=== PATIENT | male | born 1955 | race Caucasian/White ===

== ENCOUNTER 2023-01-15 08:55 | Observation (INO) | payer MEDICARE, SELFPAY ==
[2023-01-15] VITALS (11 sets, daily range): BP systolic 126–158; BP diastolic 47–74; PULSE 80–116; RESP 17–24; TEMP 35.8–36.9; O2SAT 96–100; BMI 33.0
--- NOTE | ~2023-01-15 | CT_ITS ---
CT of the Abdomen and Pelvis: Indication: Epigastric pain Technique: 2.5 mm axial scans were obtained through the abdomen and pelvis following intravenous adm inistration of 100 cc of Omnipaque 350. Dose reduction technique was used on this scan by utilizing a utomated exposure control and iterative reconstruction technique. The dose-length product (DLP) was 1 479.35 mGy-cm. Findings: Scans through the lung bases are unremarkable. The liver, spleen, pancreas, gallbladder, adrenals and kidneys are within normal limits. No evidence of aortic aneurysm. No lymphadenopathy. No bowel obstruction or bowel wall thickening. There is no evidence to suggest acute appendicitis. Th ere is a 7 mm enhancing nodular opacity in the posterior gastric fundal region (axial image 42, sagit josefina image 118), with density essentially equivalent to the aorta. Images through the pelvis were performed. Urinary bladder unremarkable. Prostate gland and seminal ve sicles are unremarkable. No ascites. Impression: 7 mm enhancing nodule in the posterior gastric fundal region, as above. This is nonspecific, but diag nostic insufficiency clinically vascular lesion (aneurysm or surrounding them), or other abnormal enh ancing small mass. This is of uncertain clinical significance. No evidence of other blood products wi thin the gastric lumen. Endoscopy could be considered as indicated. CT angiogram could also be consid ered for further imaging evaluation. No other significant findings. Reviewed, dictated and finalized at [facility]. Impression: 7 mm enhancing nodule in the posterior gastric fundal region, as above. This is nonspecific, but diagnostic insufficiency clinically vascular lesion (aneurysm or surrounding them), or other abnormal enhancing small mass. This is of uncer tain clinical significance. No evidence of other blood products within the rodney britt lumen. Endoscopy could be considered as indicated. CT angiogram could also be considered for further imaging evaluation. No other significant findings.
[2023-01-15 09:21] LABS: Basophils Absolute Auto 0.1 K/mm3 (0.0-0.1); Basophils Percent Auto 0.8 % (0.2-1.2); Eosinophils Absolute Auto 0.1 K/mm3 (0-0.3); Eosinophils Percent Auto 0.7 % (0-4.4); Hematocrit 43.3 % (42.0-52.0); Hemoglobin 14.2 g/dL (14.0-18.0); Immature Granulocyte Absolute 0.02 K/mm3 (0.00-0.031); Immature Granulocyte Percent A 0.2 % (0-0.5); Lymphocytes Absolute Auto 1.46 K/mm3 (0.9-3.2); Lymphocytes Percent Auto 17.5 % (18.3-44.2); Mean Corpuscular HGB Conc 32.8 g/dl (32-36); Mean Corpuscular Hemoglobin 31.1 pg (26-34); Mean Corpuscular Volume 94.7 fl (80-100); Mean Platelet Volume 9.9 fl (7.4-10.4); Monocytes Absolute Auto 0.5 K/mm3 (0.1-0.6); Monocytes Percent Auto 6.4 % (2.6-8.5); Neutrophils Absolute Auto 6.2 K/mm3 (1.3-6.7); Neutrophils Percent Auto 74.4 % (45.5-73.1); Platelet Count Result 193 k/mm3 (150-375); Red Blood Count 4.57 M/mm3 (4.6-6.20); Red Cell Distribution Width 12.3 % (11.5-14.5); White Blood Count 8.3 K/mm3 (4.5-10.0)
[2023-01-15 09:36] LABS: Alanine Aminotransferase 31 U/L (6-50); Albumin Level 3.8 g/dL (3.5-5.1); Alkaline Phosphatase 128 U/L (38-126); Anion Gap 17 mmol/L (8-16); Aspartate Amino Transferase 36 U/L (17-59); Bilirubin,Total 1.8 mg/dL (0.2-1.3); Blood Urea Nitrogen 28 mg/dL (9-20); Calcium 8.4 mg/dL (8.4-10.2); Carbon Dioxide 12 mmol/L (22-30); Chloride 103 mmol/L (98-107); Estimated CRCL calculation 74 ml/min; Estimated Glomerular Filt Rate 60; Glucose 454 mg/dL (65-110); Lipase 122 U/L (23-300); Potassium 4.8 mmol/L (3.4-5.0); Sodium 132 mmol/L (137-145)
[2023-01-15] MEDS: SODIUM CHLORIDE 0.9% IV 1,000 ML 999 ML IV CONT ×3 (09:39→11:09)
--- NOTE | 2023-01-15 09:48 | ED.GENADULT ---
HPI - General Adult General Chief complaint: Abdominal Pain <Joel Cavanaugh PA-C - Last Filed: 01/15/23 17:40> Stated complaint: abd pain <Joel Cavanaugh PA-C - Last Filed: 01/15/23 17:40> Time Seen by Provider: 01/15/23 09:06 <Joel Cavanaugh PA-C - Last Filed: 01/15/23 17:40> Source: patient <KAYLEIGH Rene Last Filed: 01/15/23 17:40> Mode of arrival: ambulatory <KAYLEIGH Rene Last Filed: 01/15/23 17:40> Limitations: no limitations <Joel Cavanaugh PA-C - Last Filed: 01/15/23 17:40> History of Present Illness HPI narrative: This is a 67-year-old male with PMH of type 1 diabetes who presents to the ED with chief complaint of generalized abdominal pain for the past 2 days. Patient states that it came on suddenly but has been constant since onset. Reports that his sugars have been very high at home. He self boluses with carb counting. He states his machine has a scheduled long-acting insulin as well. Denies fevers, chills, nausea, vomiting, diarrhea, constipation, chest pain, shortness of breath. <Joel Cavanaugh PA-C - Last Filed: 01/15/23 17:40> Related Data Home medications: Home Medications Medication Instructions Recorded Confirmed aspirin 81 mg tablet,delayed 81 mg PO DAILY 10/23/20 01/15/23 release (Adult Aspirin Regimen) atorvastatin 40 mg tablet (Lipitor) 40 mg PO DAILY 10/23/20 01/15/23 ezetimibe 10 mg tablet 10 mg PO DAILY 10/23/20 01/15/23 lisinopril 20 mg tablet 20 mg PO DAILY 10/23/20 01/15/23 insulin lispro 100 unit/mL See Rx Instructions .Route .COMPLEX 01/15/23 01/15/23 subcutaneous solution <KAYLEIGH Rene Last Filed: 01/15/23 17:40> Allergies/adverse reactions: Allergies Allergy/AdvReac Type Severity Reaction Status Date / Time No Known Allergies Allergy Verified 02/20/22 08:23 <Joel Cavanaugh PA-C - Last Filed: 01/15/23 17:40> PMFSH Past Medical History Medical History: Medical History Essential (primary) hypertension Mixed hyperlipidemia Type 1 diabetes <Joel Cavanaugh PA-C - Last Filed: 01/15/23 17:40> Family History Family History: Family History Mother Cerebrovascular accident Acute myocardial infarction Sibling Family history of cardiovascular disease Diabetes mellitus Sibling Diabetes mellitus Son Diabetes mellitus Sibling Diabetes mellitus <Joel Cavanaugh PA-C - Last Filed: 01/15/23 17:40> Social History Social History: Social History Smoking status: Never smoker Second hand tobacco smoke exposure: No Alcohol intake: current Drinks per week: 24 Substance use: never Lack of Transportation: No Lack of Food: Never True Current Housing: I Have Housing Concerned About Future Housing: No Difficulty Paying Gas/Electric Bills: No Difficulty Paying for Meds: No Currently Unemployed: No Education: Associate Degree Difficulty w/ Childcare or Family Care: No Spiritual care concerns: No <Joel Cavanaugh PA-C - Last Filed: 01/15/23 17:40> Exam Narrative: GENERAL: Well-appearing, well-nourished, and in no acute distress. HEAD: Normocephalic, atraumatic. EYES: PERRLA and EOMI. ENT: Nares clear, no rhinorrhea or epistaxis. Mucous membranes moist. Oropharynx without tonsillar hypertrophy exudate or other lesions. NECK: Supple. No adenopathy or masses. CHEST: No respiratory distress. Clear to auscultation. No wheezes rales or rhonchi HEART: Regular rate and rhythm. No murmur heard. Normal peripheral pulses. ABDOMEN: Mild epigastric tenderness. Soft, otherwise nontender, nondistended, normal active bowel sounds. Negative Neal sign. Negative McBurney's point. MSK: Normal range of motion. No edema. SKIN: Warm, dry, no rash. NEURO: Alert and oriented x3. No focal deficits. PSYCH: Nor
[2023-01-15 10:23] LABS: Fractional Inspired Oxygen 21 %; HCO3 VBG 14.3 mEq/l (24.0-30.0); pH VBG 7.304 (7.300-7.400)
[2023-01-15 10:24] LABS: Device ROOM AIR; PCO2 VBG 29.4 mmHg (42.0-48.0)
[2023-01-15 10:53] LABS: Lactic Acid Reflex 3.1 mmol/L (0.7-2.0)
--- NOTE | 2023-01-15 11:08 | PC.NURSE ---
Per provider, insulin and kcl will wait to be given depending on patient's BMP results.
[2023-01-15 11:22] LABS: Appearance Urine Clear (Clear); Bilirubin Urine Negative (Negative); Blood Urine Negative (Negative); Color Urine Yellow (Yellow); Glucose Urine UA 3+ mg/dL (Negative); Ketones Urine 3+ mg/dL (Negative); Leukocyte Esterase Ur Negative LEU/UL (Negative); Nitrate Urine Negative (Negative); Protein Urine Negative (Negative); pH Urine 5.5 (5.0-9.0)
[2023-01-15 11:27] LABS: Specific Grav Ur 1.039 (1.001-1.035)
[2023-01-15 11:28] LABS: Add Urine Microscopic? NO; Anion Gap 17 mmol/L (8-16); Blood Urea Nitrogen 28 mg/dL (9-20); Calcium 8.1 mg/dL (8.4-10.2); Carbon Dioxide 14 mmol/L (22-30); Chloride 103 mmol/L (98-107); Estimated CRCL calculation 81 ml/min; Estimated Glomerular Filt Rate > 60; Glucose 367 mg/dL (65-110); Potassium 4.8 mmol/L (3.4-5.0); Sodium 134 mmol/L (137-145)
[2023-01-15 11:29] LABS: Hemoglobin A1C 8.6 % (<5.7)
[2023-01-15] MEDS: INSULIN HUMAN REGULAR (*BKC) 100 UNITS/ML 10 UNITS IV PUSH (11:49)
[2023-01-15 12:45] LABS: Glucose Point of Care 256 mg/dl (65-105)
[2023-01-15 13:13] LABS: Anion Gap 13 mmol/L (8-16); Blood Urea Nitrogen 26 mg/dL (9-20); Calcium 7.8 mg/dL (8.4-10.2); Carbon Dioxide 15 mmol/L (22-30); Chloride 108 mmol/L (98-107); Estimated CRCL calculation 88 ml/min; Estimated Glomerular Filt Rate > 60; Glucose 273 mg/dL (65-110); Potassium 4.5 mmol/L (3.4-5.0); Sodium 136 mmol/L (137-145)
[2023-01-15 13:38] LABS: Reflex Lactic Acid Yes or No Add Lactic
[2023-01-15 13:45] LABS: Glucose Point of Care 260 mg/dl (65-105)
--- NOTE | 2023-01-15 13:47 | PM.IMHP ---
H&P: HPI History of Present Illness Date/Time: 01/15/23 14:15 Chief Complaint: Abdominal pain and high blood sugar. Narrative: This is a very pleasant 67-year-old male with insulin-dependent diabetes, hypertension, and dyslipidemia who presented to the emergency department via private vehicle from home for evaluation of abdominal pain and high blood sugar. The patient provides the following history. The last several days he has developed an intermittent aching discomfort in the periumbilical region without radiation. It does not radiate and he sees no pattern as to when it occurs. Associated symptoms include nausea and dry heaves as well as poor appetite and decreased oral intake. He had 1 episode of diarrhea but that has since resolved. Additionally, his glucose has been running high, over 400 the last couple of days despite bolusing insulin. Insulin pump site is unremarkable and he did not see anything wrong with the placement. He denies fever, chills, sweats, cold and flu symptoms, chest pain, shortness a breath, vomiting, and dysuria. He also denies bloating, belching, GERD symptoms, and history of ulcers. Weight has remained stable. Preliminary workup in the ED is consistent with mild diabetic ketoacidosis with hyperglycemia, elevated beta hydroxybutyrate, ketonuria, and elevated anion gap. CT of the abdomen and pelvis showed a 7 mm enhancing nodule in the posterior gastric fundal region. He was given 3 L of normal saline with closure of anion gap and he has since been admitted to the IMU for further hydration. At the time my evaluation he is feeling better with the IV fluids and he has no current complaints. Review of Systems Review of Systems: Twelve systems were reviewed and are negative except for as per HPI. [facility] Past Medical History Medical History BMI 33.0-33.9,adult Essential (primary) hypertension Insulin dependent diabetes mellitus Mixed hyperlipidemia Type 1 diabetes Surgical History Surgical History (Updated 01/15/23 @ 21:24 by Evelyn Gardner PA-C) History of colonoscopy Family History Family History Mother Cerebrovascular accident Acute myocardial infarction Sibling Family history of cardiovascular disease Diabetes mellitus Sibling Diabetes mellitus Son Diabetes mellitus Sibling Diabetes mellitus Social History Social History (Updated 01/15/23 @ 21:25 by Evelyn Gardner PA-C) Social History: Surrogate medical decision maker: Deann Lundy, spouse. Code status: Full code. Smoking status: Never smoker Second hand tobacco smoke exposure: No Alcohol intake: current Drinks per week: 24 Alcohol use details: Six pack of beer 3 to 4 days a week. Substance use: never Lack of Transportation: No Lack of Food: Never True Current Housing: I Have Housing Concerned About Future Housing: No Difficulty Paying Gas/Electric Bills: No Difficulty Paying for Meds: No Currently Unemployed: No Education: Associate Degree Difficulty w/ Childcare or Family Care: No Additional living arrangements comments: Lives with spouse in [place]. 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 Spiritual care concerns: No Meds Home Medications and Allergies Home Medications Medication Instructions Recorded Confirmed Type aspirin 81 mg tablet,delayed 81 mg PO DAILY 10/23/20 01/16/23 History release (Adult Aspirin Regimen) atorvastatin 40 mg tablet (Lipitor) 40 mg PO DAILY 10/23/20 01/16/23 History ezetimibe 10 mg tablet 10 mg PO DAILY 10/23/20 01/16/23 History lisinopril 20 mg tablet 20 mg PO DAILY 10/23/20 01/16/23 History insulin lispro 100 unit/mL See Rx Instructions .Route .COMPLEX 01/15/23 01/16/23 History subcutaneous solution Allergies Allergy/AdvReac Type Severity Reaction Status Date / Time No K
[2023-01-15] MEDS: LACTATED RINGERS 1,000 ML 125 ML IV CONT ×2 (14:02→22:11)
[2023-01-15 14:57] LABS: Glucose Point of Care 313 mg/dl (65-105)
--- NOTE | 2023-01-15 15:16 | ADMGEN ---
This patient, Charlie Lundy, was admitted to IMU Room 210-01. Patient/family oriented to hospital policies and general routines including ID bracelet, bed and alarms, visiting hours, pain management, procedures, bathroom and other care routines, personal items, smoking policy, room service/diet, and visiting hours. Information on how to activate the Rapid Response Team has been discussed. Patient/Family are encouraged to report perceived risks to care and to ask questions if they do not understand what they are told or what they should do.
[2023-01-15] MEDS: INSULIN ASPART (*BKC) 100 UNITS/ML 8 UNITS SUB-Q (15:29)
[2023-01-15 15:32] LABS: Lactic Acid 1.5 mmol/L (0.7-2.0)
[2023-01-15] MEDS: PANTOPRAZOLE SODIUM IV 80 MG in SODIUM CHLORIDE 0.9% IV 500 ML 50 MG IV CONT (15:37)
[2023-01-15] MEDS: INSULIN ASPART (*BKC) 100 UNITS/ML SUB-Q (16:33)
[2023-01-15 16:42] LABS: Glucose Point of Care 359 mg/dl (65-105)
--- NOTE | 2023-01-15 17:28 | WPDGICN ---
Assessment and Plan Assessment and plan (1) Diabetic ketoacidosis: Code(s): E11.10 - Type 2 diabetes mellitus with ketoacidosis without coma Status: Acute Assessment and Plan: ALTHOUGH HE HAS AN INSULIN PUMP, HIS DIABETES APPARENTLY HAS BEEN POOR CONTROL LATELY. HE HAS BEEN LETTING IT RUN OVER 200 AND TODAY IT WENT UP TO 454. (2) Abdominal pain: Code(s): R10.9 - Unspecified abdominal pain Status: Acute Assessment and Plan: This pain has been present since Thursday it is deep and he is not tender on palpation. He had the same thing in November for several days. He should be to to his diabetes because on both occasions his blood sugars were quite high he has had no vomiting or nausea. His weight is stable. (3) Abnormal CT scan, gastrointestinal tract: Code(s): R93.3 - Abnormal findings on diagnostic imaging of other parts of digestive tract Status: Acute Assessment and Plan: 7 mm enhancing nodule in the posterior gastric fundal region, as above. This is nonspecific, but diagnostic insufficiency clinically vascular lesion (aneurysm or surrounding them), or other abnormal enhancing small mass. This is of uncertain clinical significance. No evidence of other blood products within the gastric lumen. Endoscopy could be considered as indicated. CT angiogram could also be considered for further imaging evaluation. I will schedule him for EGD to be done tomorrow morning to investigate this mass as well as the abdominal pain. GI Consult Note Consult date/time: 01/15/23 17:28 HPI: Charlie Lundy is a 67 year old male who presented to the emergency room today with diabetes out of control and abdominal pain. He states that Thursday he began having pain in the upper mid abdomen, a somewhat localized semi sharp pain that seemed Deep. It made his entire abdomen feel sore. He was able to eat and has had no vomiting. He also noted that his blood sugars were increasing. He came to emergency room today finally when his blood sugar was over 450. He states that his weight has been stable. He has not had a change in bowel habits. He has no chronic gastrointestinal problems. He has never had liver disease or pancreatiti s. He states that the same thing happened in November. At that time his blood sugar was elevated and he had abdominal pain which subsided after a few days on its own. he states that he has never been hospitalized in his adult life. He does have an insulin pump. He had a colonoscopy about 5 years ago with removal of a polyp. CT scan shows; 7 mm enhancing nodule in the posterior gastric fundal region, as above. This is nonspecific, but diagnostic insufficiency clinically vascular lesion (aneurysm or surrounding them), or other abnormal enhancing small mass. This is of uncertain clinical significance. No evidence of other blood products within the gastric lumen. Endoscopy could be considered as indicated. CT angiogram could also be considered for further imaging evaluation. Review of Systems Review of Systems: All systems reviewed & are unremarkable except as noted in HPI and below PMFSH Past Medical History Medical History Essential (primary) hypertension Mixed hyperlipidemia Type 1 diabetes Family History Family History Mother Cerebrovascular accident Acute myocardial infarction Sibling Family history of cardiovascular disease Diabetes mellitus Sibling Diabetes mellitus Son Diabetes mellitus Sibling Diabetes mellitus Social History Social History Smoking status: Never smoker Second hand tobacco smoke exposure: No Alcohol intake: current Drinks per week: 24 Substance use: never Lack of Transportation: No Lack of Food: Never True Current Housing: I Have Housing Concerned About Future Housing
[2023-01-15 18:04] LABS: Glucose Point of Care 322 mg/dl (65-105)
[2023-01-15] MEDS: INSULIN GLARGINE (*BKC) 100 UNITS/ML 30 UNITS SUB-Q (18:39)
[2023-01-15 20:14] LABS: Glucose Point of Care 251 mg/dl (65-105)
[2023-01-15 20:55] LABS: Anion Gap 9 mmol/L (8-16); Blood Urea Nitrogen 27 mg/dL (9-20); Calcium 7.8 mg/dL (8.4-10.2); Carbon Dioxide 18 mmol/L (22-30); Chloride 106 mmol/L (98-107); Estimated CRCL calculation 81 ml/min; Estimated Glomerular Filt Rate > 60; Glucose 251 mg/dL (65-110); Potassium 4.7 mmol/L (3.4-5.0); Sodium 133 mmol/L (137-145)
[2023-01-16] VITALS (10 sets, daily range): BP systolic 128–196; BP diastolic 66–78; PULSE 72–85; RESP 17–20; TEMP 35.8–36.8; O2SAT 97–100; BMI 33.0
--- NOTE | 2023-01-16 07:00 | PC.NURSE ---
Paper documentation exists on this patient due to [employer] downtime on 01/16/23 from to [0700] .
[2023-01-16 08:03] LABS: Glucose Point of Care 216 mg/dl (65-105)
[2023-01-16] MEDS: INSULIN ASPART (*BKC) 100 UNITS/ML SUB-Q ×2 (08:23→12:24)
[2023-01-16] MEDS: LACTATED RINGERS 1,000 ML 125 ML IV CONT ×2 (08:25→16:49)
--- NOTE | 2023-01-16 10:09 | WPDANESEPPF ---
Anes - Initial Pre Proc Eval Procedure: Operation Date: 01/16/23 14:15 Proposed Procedures p Esophagogastroduodenoscopy - Foreign Singh MD Date/Time: 01/16/23 10:09 Surgeon: Sofi Hernandez MD Pre Op Diagnosis: DKA/ Hyperglycemia Patient Data Age: 67 Gender: M Height: 1.91 m Weight: 120 kg Last Vital Signs Temp 35.8 C L 01/16/23 08:15 Pulse 85 01/16/23 08:15 Resp 20 01/16/23 08:15 BP 158/77 H 01/16/23 08:15 Pulse Ox 99 01/16/23 08:15 O2 Del Method Room Air 01/16/23 08:00 Allergies Allergy/AdvReac Type Severity Reaction Status Date / Time No Known Allergies Allergy Verified 02/20/22 08:23 Home Medications Medication Instructions Recorded Confirmed Type aspirin 81 mg tablet,delayed 81 mg PO DAILY 10/23/20 01/15/23 History release (Adult Aspirin Regimen) atorvastatin 40 mg tablet (Lipitor) 40 mg PO DAILY 10/23/20 01/15/23 History ezetimibe 10 mg tablet 10 mg PO DAILY 10/23/20 01/15/23 History lisinopril 20 mg tablet 20 mg PO DAILY 10/23/20 01/15/23 History insulin lispro 100 unit/mL See Rx Instructions .Route .COMPLEX 01/15/23 01/15/23 History subcutaneous solution Laboratory Tests 01/15/23 01/15/23 01/15/23 09:16 10:14 10:34 VBG pH 7.304 (7.300-7.400) VBG pCO2 29.4 L* mmHg (42.0-48.0) VBG pO2 44.0 mmHg (35.0-45.0) VBG HCO3 14.3 L mEq/l (24.0-30.0) O2 Delivery Device Room air O2 Liters/Min Not Reportable FiO2 21 % Sodium Potassium Chloride Carbon Dioxide Anion Gap BUN Creatinine Estim Creat Clear Calc Estimated GFR Glucose POC Capillary Glucose Hemoglobin A1c Lactic Acid 3.1 H mmol/L (0.7-2.0) Calcium Phosphorus Magnesium Beta-Hydroxybutyrate/Acetoacetate 3.80 H mmol/L (0.02-0.27) Urine Color Urine Appearance Urine pH Ur Specific Palmer Urine Protein Urine Glucose (UA) Urine Ketones Ur Blood (Man) Urine Nitrate Urine Bilirubin Urine Urobilinogen Leukocyte Esterase Rfl 01/15/23 01/15/23 01/15/23 11:11 12:42 12:55 VBG pH VBG pCO2 VBG pO2 VBG HCO3 O2 Delivery Device O2 Liters/Min FiO2 Sodium 134 L mmol/L 136 L mmol/L (137-145) (137-145) Potassium 4.8 mmol/L 4.5 mmol/L (3.4-5.0) (3.4-5.0) Chloride 103 mmol/L 108 H mmol/L (98-107) (98-107) Carbon Dioxide 14 L mmol/L 15 L mmol/L (22-30) (22-30) Anion Gap 17 H mmol/L 13 mmol/L (8-16) (8-16) BUN 28 H mg/dL 26 H mg/dL (9-20) (9-20) Creatinine 1.10 mg/dL 1.00 mg/dL (0.7-1.3) (0.7-1.3) Estim Creat Clear Calc 81 ml/min 88 ml/min Estimated GFR > 60 > 60 (59 - ) (59 - ) Glucose 367 H mg/dL 273 H mg/dL (65-110) (65-110) POC Capillary Glucose 256 H mg/dl (65-105) Hemoglobin A1c 8.6 H % (<5.7) Lactic Acid Calcium 8.1 L mg/dL 7.8 L mg/dL (8.4-10.2) (8.4-10.2) Phosphorus 3.0 mg/dL (2.5-4.5) Magnesium 2.0 mg/dL (1.6-2.3) Beta-Hydroxybutyrate/Acetoacetate Urine Color Yellow (Yellow) Urine Appearance Clear (Clear) Urine pH 5.5 (5.0-9.0) Ur Specific Palmer 1.039 H (1.001-1.035) Urine Protein Negative mg/dL (Negative) Urine Glucose (UA) 3+ H mg/dL (Negative) Urine Ketones 3+ H mg/dL (Negative) Ur Blood (Man) Negative (Negative) Urine Nitrate Negative (Negative) Urine Bilirubin Negative (Ne
[2023-01-16 11:30] LABS: Glucose Point of Care 249 mg/dl (65-105)
--- NOTE | 2023-01-16 11:49 | PCCCNOTE ---
On 01/16/23, the student, [Sally Erazo], provided care and completed [facility] documentation on this patient. I have reviewed the student's documentation and agree with the findings.
--- NOTE | 2023-01-16 13:09 | PM.IMPN ---
Progress Note: A&P Assessment and Plan (1) Diabetic ketoacidosis: Code(s): E11.10 - Type 2 diabetes mellitus with ketoacidosis without coma Status: Resolved Assessment and Plan: The patient presented to the emergency department for evaluation of periumbilical pain and hyperglycemia as per HPI. Preliminary workup in the emergency department was consistent with mild diabetic ketoacidosis with hyperglycemia, ketonuria, elevated beta hydroxybutyrate, and elevated anion gap. His numbers have improved significantly with IV fluids and he will continue to be hydrated overnight. Insulin pump was removed in the emergency department and he will be transition to long-acting insulin while hospitalized. It is unclear where his glucose is climbing, there is no evidence to suggest underlying infection and he reports that his insulin pump site was operating fine. Plan to restart insulin pump tomorrow after he has completed EGD. (2) Abdominal pain: Code(s): R10.9 - Unspecified abdominal pain Status: Acute Assessment and Plan: Regarding the abdominal discomfort, no acute findings were noted on CT however there was a 7 mm nodular area in the gastric fundus Dr. Singh has been consulted with plans for EGD 2 day at 4:15 p.m. Start on pantoprazole. (3) Insulin dependent diabetes mellitus: Status: Acute Assessment and Plan: Insulin Lispro sliding scale, Accu-checks qAc and HS and Hold oral hypoglycemics Initiate hypoglycemic precautions Obtain a HgbA1c Plan will continue home medications for hyperlipidemia and hypertension. Subjective Date/time seen: 01/16/23 13:09 Interval history: Patient continues to have epigastric pain that is worse with eating. He is scheduled had EGD at 4:15 a.m. this afternoon. He describes the pain as a dull aching pain. There is no radiation. No nausea associated with the pain and no fevers. Review of Systems Review of Systems: All systems reviewed & are unremarkable except as noted in HPI and below Exam Narrative: GENERAL: Comfortable, no acute distress HENMT: moist mucous membranes EYES: EOM intact b/l NECK: no lymphadenopathy RESPIRATORY: clear to auscultation CARDIO: RRR GI: soft, nontender, bowel sounds present SKIN: no rashes EXTREMITIES: no edema, redness or tenderness Objective Data Vital Signs Vital Signs: Vital Signs - 24 hr 01/15/23 14:13 01/15/23 14:56 01/15/23 16:25 Temperature 96.5 F L 96.8 F L Pulse Rate 105 H 116 H 106 H Respiratory Rate 20 24 H Blood Pressure 133/66 126/50 L 136/47 L Pulse Oximetry 98 100 100 Oxygen Delivery 01/15/23 16:00 01/15/23 18:00 01/15/23 20:00 Temperature Pulse Rate 106 H 102 H 100 Respiratory Rate Blood Pressure Pulse Oximetry Oxygen Delivery 01/15/23 20:00 01/15/23 20:00 01/15/23 21:25 Temperature 97.0 F L Pulse Rate 101 H 93 84 Respiratory Rate 24 H 18 Blood Pressure 153/67 H Pulse Oximetry 100 96 Oxygen Delivery Room Air 01/15/23 23:07 01/15/23 23:16 01/15/23 23:16 Temperature 97.5 F L Pulse Rate 83 80 80 Respiratory Rate 18 18 Blood Pressure 158/64 H Pulse Oximetry 100 100 Oxygen Delivery Room Air 01/16/23 04:00 01/16/23 08:15 01/16/23 08:00 Temperature 97.6 F 96.4 F L Pulse Rate 78 85 85 Respiratory Rate 18 20 20 Blood Pressure 165/71 H 158/77 H Pulse Oximetry 100 99 99 Oxygen Delivery Room Air 01/16/23 08:00 01/16/23 11:31 Temperature 98.3 F Pulse Rate 85 79 Respiratory Rate 20 Blood Pressure 162/74 H Pulse Oximetry 99 Oxygen Delivery Intake/Output Intake/Output: Intake & Output 01/13/23 01/14/23 01/15/23 01/16/23 23:59 23:59 23:59 23:59 Intake Total 4660 1480 Output Total 1000 Balance 4660 480 Meds/Results Medications: Active Medications Generic Name Dose Route Start Last Admin Trade Name Freq PRN Reason Stop Dose Admin Dextrose 12.5 gm 01/15/23 21:32
--- NOTE | 2023-01-16 13:11 | PC.NURSE ---
Patient left floor with hospital staff to GI lab for egd. Patient oriented x4, no complaints stated.
[2023-01-16] MEDS: LACTATED RINGERS 1,000 ML 150 ML IV CONT (13:16)
[2023-01-16 13:20] LABS: Glucose Point of Care 207 mg/dl (65-105)
[2023-01-16] MEDS: SIMETHICONE ORAL SUSPENSION 20 MG/0.3 ML 30 ML BOTTLE PO (14:41)
[2023-01-16 15:07] LABS: Glucose Point of Care 169 mg/dl (65-105)
[2023-01-16] MEDS: INSULIN ASPART (*BKC) 100 UNITS/ML 6 UNITS SUB-Q (16:50)
[2023-01-16 17:02] LABS: Glucose Point of Care 174 mg/dl (65-105)
[2023-01-16 21:38] LABS: Glucose Point of Care 114 mg/dl (65-105)
[2023-01-17] MEDS: LACTATED RINGERS 1,000 ML 125 ML IV CONT ×2 (00:49→08:20)
[2023-01-17 05:54] LABS: Glucose Point of Care 145 mg/dl (65-105)
[2023-01-17 06:00] VITALS: BP 161/84; PULSE 79; RESP 20; TEMP 36.1; O2SAT 99
[2023-01-17 06:50] LABS: Basophils Percent Auto 0.9 % (0.2-1.2); Eosinophils Absolute Auto 0.1 K/mm3 (0-0.3); Eosinophils Percent Auto 2.7 % (0-4.4); Hematocrit 39.8 % (42.0-52.0); Hemoglobin 13.4 g/dL (14.0-18.0); Immature Granulocyte Absolute 0.02 K/mm3 (0.00-0.031); Immature Granulocyte Percent A 0.4 % (0-0.5); Lymphocytes Absolute Auto 0.88 K/mm3 (0.9-3.2); Lymphocytes Percent Auto 19.6 % (18.3-44.2); Mean Corpuscular HGB Conc 33.7 g/dl (32-36); Mean Corpuscular Hemoglobin 31.2 pg (26-34); Mean Corpuscular Volume 92.6 fl (80-100); Mean Platelet Volume 9.5 fl (7.4-10.4); Monocytes Absolute Auto 0.4 K/mm3 (0.1-0.6); Monocytes Percent Auto 8.9 % (2.6-8.5); Neutrophils Percent Auto 67.5 % (45.5-73.1); Platelet Count Result 155 k/mm3 (150-375); Red Cell Distribution Width 11.9 % (11.5-14.5); White Blood Count 4.5 K/mm3 (4.5-10.0)
[2023-01-17 07:04] LABS: Alanine Aminotransferase 23 U/L (6-50); Albumin Level 2.9 g/dL (3.5-5.1); Alkaline Phosphatase 79 U/L (38-126); Anion Gap 2 mmol/L (8-16); Aspartate Amino Transferase 29 U/L (17-59); Bilirubin,Total 0.6 mg/dL (0.2-1.3); Blood Urea Nitrogen 11 mg/dL (9-20); Calcium 8.1 mg/dL (8.4-10.2); Carbon Dioxide 29 mmol/L (22-30); Chloride 108 mmol/L (98-107); Estimated CRCL calculation 100 ml/min; Estimated Glomerular Filt Rate > 60; Glucose 128 mg/dL (65-110); Sodium 139 mmol/L (137-145)
[2023-01-17 07:34] LABS: Hemoglobin A1C 8.9 % (<5.7)
[2023-01-17 07:53] LABS: Glucose Point of Care 137 mg/dl (65-105)
[2023-01-17] MEDS: EZETIMIBE 10 MG TABLET PO (08:21)
[2023-01-17] MEDS: ATORVASTATIN 40 MG TABLET PO (08:21)
[2023-01-17] MEDS: lisinopriL 20 MG TABLET PO (08:21)
[2023-01-17] MEDS: ASPIRIN 81 MG ENTERIC TABLET PO (08:21)
--- NOTE | 2023-01-17 10:13 | WPDGIPROGNO ---
Progress Note: A&P Assessment and Plan (1) Diabetic ketoacidosis: Code(s): E11.10 - Type 2 diabetes mellitus with ketoacidosis without coma Status: Resolved Assessment and Plan: ALTHOUGH HE HAS AN INSULIN PUMP, HIS DIABETES APPARENTLY HAS BEEN POOR CONTROL LATELY. HE HAS BEEN LETTING IT RUN OVER 200 AND TODAY IT WENT UP TO 454. blood sugar is now down to 128. He states that before he had the sudden jump to 454 it had been in the low 100s just 2 days previous (2) Abdominal pain: Code(s): R10.9 - Unspecified abdominal pain Status: Acute Assessment and Plan: This pain has been present since Thursday it is deep and he is not tender on palpation. He had the same thing in November for several days. He should be to to his diabetes because on both occasions his blood sugars were quite high he has had no vomiting or nausea. His weight is stable. (3) Abnormal CT scan, gastrointestinal tract: Code(s): R93.3 - Abnormal findings on diagnostic imaging of other parts of digestive tract Status: Acute Assessment and Plan: 7 mm enhancing nodule in the posterior gastric fundal region, as above. This is nonspecific, but diagnostic insufficiency clinically vascular lesion (aneurysm or surrounding them), or other abnormal enhancing small mass. This is of uncertain clinical significance. No evidence of other blood products within the gastric lumen. Endoscopy could be considered as indicated. CT angiogram could also be considered for further imaging evaluation. I will schedule him for EGD to be done tomorrow morning to investigate this mass as well as the abdominal pain. 01/17/2023 EGD did not reveal anything significant. The plan will be to repeat a CT scan as a CTA in about 4 weeks. Plan From my perspective he can be discharged today and follow up with me. I will try to collect a stool specimen for cultures just to be sure there is not an infection. Subjective Date/time seen: 01/17/23 10:13 he is tolerating his diet. His new complaint is that he has diarrhea, several episodes in last 24 hours. He continues to have discomfort in his lower abdomen. He draws a line across his lower abdomen underneath his abdominal fat apron. There was not a focal tenderness on palpation. We discussed his EGD results which were unremarkable. H pylori was negative. Blood sugars are now well controlled. He reiterated that month ago when he suddenly had a spike in his blood sugars that he had the same kind of abdominal pain which subsided on its own. Exam Const: General: cooperative, healthy appearing and obese Nutritional Appearance: obese Orientation/consciousness: patient oriented x3 HENMT: Head: normal to inspection Ears: hearing grossly normal bilaterally Mouth: Yes Normal oral and palatal mucosa present Eyes: General: appearance normal, both eyes and all related structures Neck: Neck: normal visual inspection Chest: Chest palpation & inspection: normal inspection of the chest Resp: Effort & Inspection: normal respiratory effort Auscultation: clear to auscultation bilaterally Cardio: Rate: regular rate Rhythm: regular rhythm GI: Inspection: obesity GI Palp: Yes Soft to palpation, Yes Tenderness to palpation present (GI) ( Mildly tender lower abdomen transverse below fat apron.), Yes No hepatosplenomegaly present and Yes Other GI palpation findings present ( His abdominal tenderness is actually superficial) Auscultation: normal bowel sounds Skin: General skin exam: normal color and no jaundice Neuro: General: patient oriented x3 Speech: normal speech Objective Data Vital Signs Vital Signs: Vital Signs - 24 hr 01/16/23 11:31 01/16/23 13:10 01/16/23 14:46 Temperature 36.8 C 36.0 C L Pulse Rate 79 84 80 Respiratory Rate 20 18 17 Blood Pressure 162/74 H 196/77 H 128/66 Pulse Oximetry 99 99 97 Oxygen Delivery Room Air Room Air 01/16/23 14:55 01/16/23 15:05 01/16/23 20:00
--- NOTE | 2023-01-17 11:20 | PM.DS ---
DS: Admitting Diagnosis Discharge Date 01/16/23 Admitting Diagnosis Abdominal pain DS: Discharge Diagnosis Discharge Diagnosis (1) Diabetic ketoacidosis: Code(s): E11.10 - Type 2 diabetes mellitus with ketoacidosis without coma Status: Resolved (2) Abdominal pain: Code(s): R10.9 - Unspecified abdominal pain Status: Acute (3) Insulin dependent diabetes mellitus: Status: Acute DS: Summary Hospital Course Hospital Course: This is a very pleasant 67-year-old male with insulin-dependent diabetes, hypertension, and dyslipidemia who presented to the emergency department via private vehicle from home for evaluation of abdominal pain diarrhea and high blood sugar.? prior to presenting to the ER patient had several days of periumbilical abdominal pain without radiation. He also knows that his blood sugars have been running over 400 the past several days despite bolusing himself with insulin. Preliminary workup in the ED showed mild diabetic ketoacidosis with hyperglycemia, elevated beta hydroxybutyrate, ketone urea and elevated anion gap. He was given 3 L of fluids and the anion gap closed. CT abdomen pelvis showed a 7 mm enhancing nodule in the posterior gastric fundal region. He was started on IV Protonix and GI was consulted. EGD revealed nonerosive reflux disease, gastric polyps and duodenitis. Stool studies ordered and is advise he follow up with GI for stool culture results. His lab a mild signs are stable and he is medically cleared for discharge Time Spent with Patient Time attestation: Total time spent providing and/or coordinating discharge services: Exam Narrative: GENERAL: Comfortable, no acute distress HENMT: moist mucous membranes EYES: EOM intact b/l NECK: no lymphadenopathy RESPIRATORY: clear to auscultation CARDIO: RRR GI: soft, nontender, bowel sounds present SKIN: no rashes EXTREMITIES: no edema, redness or tenderness DS: Data Data Completed and Pending Labs on day of discharge: Labs from last 24 hours 01/17/23 01/17/23 01/17/23 07:31 06:39 05:07 WBC 4.5 RBC 4.30 L Hgb 13.4 L Hct 39.8 L MCV 92.6 MCH 31.2 MCHC 33.7 RDW 11.9 Plt Count 155 MPV 9.5 Immature Gran % (Auto) 0.4 Neut % (Auto) 67.5 Lymph % (Auto) 19.6 Saline % (Auto) 8.9 H Eos % (Auto) 2.7 Baso % (Auto) 0.9 Lymph # (Auto) 0.88 L Saline # (Auto) 0.4 Eos # (Auto) 0.1 Baso # (Auto) 0.0 Abs Immat Gran (auto) 0.02 Absolute Neuts (auto) 3.0 Absolute Nucleated RBC 0.0 Nucleated RBC % 0.0 Sodium 139 Potassium 4.0 Chloride 108 H Carbon Dioxide 29 Anion Gap 2 L BUN 11 D Creatinine 0.90 Estim Creat Clear Calc 100 Estimated GFR > 60 Glucose 128 H POC Capillary Glucose 137 H 145 H Hemoglobin A1c 8.9 H Calcium 8.1 L Total Bilirubin 0.6 AST 29 ALT 23 Alkaline Phosphatase 79 Total Protein 6.0 L Albumin 2.9 L 01/16/23 01/16/23 01/16/23 21:12 16:53 15:05 WBC RBC Hgb Hct MCV MCH MCHC RDW Plt Count MPV Immature Gran % (Auto) Neut % (Auto) Lymph % (Auto) Saline % (Auto) Eos % (Auto) Baso % (Auto) Lymph # (Auto) Saline # (Auto) Eos # (Auto) Baso # (Auto) Abs Immat Gran (auto) Absolute Neuts (auto) Absolute Nucleated RBC Nucleated RBC % Sodium Potassium Chloride Carbon Dioxide Anion Gap BUN Creatinine Estim Creat Clear Calc Estimated GFR Glucose POC Capillary Glucose 114 H 174 H 169 H Hemoglobin A1c Calcium Total Bilirubin AST ALT Alkaline Phosphatase Total Protein Albumin 01/16/23 01/16/23 13:18 11:21 WBC RBC Hgb Hct MCV MCH MCHC RDW Plt Count MPV Immature Gran % (Auto) Neut % (Auto) Lymph % (Auto) Saline % (Auto) Eos % (Auto) Baso % (Auto) Lymph # (Auto) Saline # (Auto)
[2023-01-17 11:41] LABS: Glucose Point of Care 159 mg/dl (65-105)
== END 2023-01-17 14:52 | disposition home or self-care (01) ==
LOC: ANHED 13:50 → ANHIMU 14:34 → ANH3MEDSUR 01-16 14:56
PROVIDERS: Emergency Medicine; Internal Medicine Critical Care Medicine; Internal Medicine Gastroenterology; Physician Assistant; Admitting Provider Family Medicine; Emergency Provider Physician Assistant; PCP Family Medicine; Visit Provider Family Medicine
PROC: 0DJ08ZZ Inspection of Upper Intestinal Tract, Via Natural or Artificial Opening Endoscopic (ICD-10-PCS; CPT 43235; principal; 2023-01-16 15:15)
DX: E10.10 Type 1 diabetes mellitus with ketoacidosis without coma (principal); R10.84 Generalized abdominal pain; E10.65 Type 1 diabetes mellitus with hyperglycemia; R93.3 Abnormal findings on diagnostic imaging of other parts of digestive tract; I10 Essential (primary) hypertension; E78.2 Mixed hyperlipidemia; K21.9 Gastro-esophageal reflux disease without esophagitis; K29.80 Duodenitis without bleeding; K31.7 Polyp of stomach and duodenum; Z96.41 Presence of insulin pump (external) (internal); E66.9 Obesity, unspecified; Z68.34 Body mass index [BMI] 34.0-34.9, adult; F10.90 Alcohol use, unspecified, uncomplicated; Z79.4 Long term (current) use of insulin; Z79.82 Long term (current) use of aspirin; Z79.899 Other long term (current) drug therapy; Z83.3 Family history of diabetes mellitus
CPT/HCPCS: 43239; 36415; 74177; 80048; 80053; 81003; 82010; 82803; 82948; 83036; 83605; 83690; 83735; 84100; 85025; 87045; 87081; 87427; 88305; 96361; 96374; 96375; 99285; A9270; C9113; G0378; J1815; J2704; J7030; J7040; J7120; Q9967

== ENCOUNTER 2023-01-30 06:42 | Outpatient (CLI) | payer MEDICARE, SELFPAY ==
--- NOTE | ~2023-01-30 | CT_ITS ---
EXAMINATION: CTA abdomen DATE: 01/30/2023 07:24 INDICATION: Stomach mass. TECHNIQUE: Computed tomographic angiography (CTA) of the abdomen was performed with 100 mL Omnipaque- 350 intravenous contrast. Automated exposure control and iterative reconstruction technique were empl oyed. The dose-length product was 1047.54 mGy-cm. Maximum intensity projection 3D-reconstructions of the aorta and other arteries were constructed by the technologist on a separate workstation. COMPARISON: CT abdomen and pelvis 01/15/2023 FINDINGS: The visualized portions of the lung bases demonstrate mild atelectasis and chronic lung dis ease. No pleural effusion. The heart size is normal. There are coronary artery calcifications. No per icardial effusion. The liver, gallbladder, spleen, pancreas, adrenal glands, and kidneys are normal. There are no dilated loops of bowel. There are no pathologically enlarged lymph nodes. There is no fr ee intraperitoneal fluid. There is moderate stenosis of celiac axis secondary to median arcuate ligam ent compression. There is no significant stenosis of superior mesenteric artery or inferior mesenteri c artery. There is mild aortic atherosclerosis. There is no significant stenosis of the renal arterie s. No stomach mass is identified. There is severe lower lumbar spondylosis. IMPRESSION: 1. No stomach mass identified. Reviewed, dictated and finalized at location B.
== END 2023-01-30 06:43 | disposition home or self-care (01) ==
PROVIDERS: PCP Family Medicine; Visit Provider Internal Medicine Gastroenterology
DX: R93.3 Abnormal findings on diagnostic imaging of other parts of digestive tract (principal)
CPT/HCPCS: 74175; Q9967

== ENCOUNTER 2024-03-23 13:14 | Emergency (ER) | payer MEDICARE, SELFPAY ==
[2024-03-23 13:17] VITALS: BP 173/76; PULSE 98; RESP 18; TEMP 36.4; O2SAT 98
--- NOTE | 2024-03-23 13:58 | ED.WOUNDLAC ---
HPI - Wound/Laceration General Chief Complaint: Extremity Injury, Upper Stated Complaint: laceration to left hand Time Seen by Provider: 03/23/24 13:24 History of Present Illness HPI narrative: 68-year-old male presents emergency department for laceration to his left wrist that occurred just prior to arrival. patient states he was using a razor blade to cut a cardboard box when he accidentally cut himself. Denies difficulty with range of motion of wrist. Last Tdap unknown. Bleeding controlled. He is not anticoagulated. Related Data Home Medications Medication Instructions Recorded Confirmed aspirin 81 mg tablet,delayed 81 mg PO DAILY 10/23/20 02/02/24 release (Adult Aspirin Regimen) atorvastatin 40 mg tablet (Lipitor) 40 mg PO DAILY 10/23/20 02/02/24 ezetimibe 10 mg tablet 10 mg PO DAILY 10/23/20 02/02/24 lisinopril 20 mg tablet 20 mg PO DAILY 10/23/20 02/02/24 insulin lispro 100 unit/mL See Rx Instructions .Route .COMPLEX 01/15/23 02/02/24 subcutaneous solution Allergies Allergy/AdvReac Type Severity Reaction Status Date / Time No Known Allergies Allergy Verified 03/23/24 13:33 Review of Systems Review of Systems: All systems reviewed & are unremarkable except as noted in HPI and below PMFSH Past Medical History Medical History BMI 33.0-33.9,adult Essential (primary) hypertension Insulin dependent diabetes mellitus Mixed hyperlipidemia Type 1 diabetes Surgical History Surgical History History of colonoscopy Family History Family History Mother Cerebrovascular accident Acute myocardial infarction Sibling Family history of cardiovascular disease Diabetes mellitus Sibling Diabetes mellitus Son Diabetes mellitus Sibling Diabetes mellitus Social History Social History Social History: Surrogate medical decision maker: Deann Lundy, spouse. Code status: Full code. Smoking status: Never smoker Second hand tobacco smoke exposure: No Alcohol intake: current Drinks per week: 24 Alcohol use details: Six pack of beer 3 to 4 days a week. Substance use: never Lack of Transportation: No Lack of Food: Never True Current Housing: I Have Housing Concerned About Future Housing: No Difficulty Paying Gas/Electric Bills: No Difficulty Paying for Meds: No Currently Unemployed: No Education: Associate Degree Difficulty w/ Childcare or Family Care: No Additional living arrangements comments: Lives with spouse in [place]. 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 Spiritual care concerns: No Exam Narrative: GENERAL: Well-appearing, well-nourished, and in no acute distress. HEAD: Normocephalic, atraumatic. ENT: Nares clear, no rhinorrhea or epistaxis. Mucous membranes moist. NECK: Supple. CHEST: Clear to auscultation. No respiratory distress. HEART: Regular rate and rhythm. No murmur heard. Normal peripheral pulses. EXTREMITIES: Normal range of motion. No edema. SKIN: 5.5 cm linear laceration overlying the left volar distal radius. Subcutaneous tissue exposed, otherwise no deep structures or foreign bodies visualized. Patient has full active and passive range of motion of wrist and all digits. Sensation intact throughout. Cap refill less than 2. NEURO: No focal deficits. Alert and oriented x3 Course Vital Signs Vital signs: Vital Signs Temperature 97.6 F 03/23/24 13:17 Pulse Rate 98 03/23/24 13:17 Respiratory Rate 03/23/24 13:17 Blood Pressure 173/76 H 03/23/24 13:17 Pulse Oximetry 98 03/23/24 13:17 Oxygen Delivery Room Air 03/23/24 13:17 Temperature 97.6 F 03/23/24 13:17 Pulse Rate 98 03/23/24 13:17 Respiratory Rate 18 03/23/24 13:17 B
[2024-03-23] MEDS: TETANUS,DIPHTHERIA,AC PERTUSSIS ADULT (0.5 ML) BOOSTRIX IM (14:11)
[2024-03-23 14:50] VITALS: BP 152/89; PULSE 90; RESP 18; TEMP 36.8; O2SAT 98
== END 2024-03-23 15:00 | disposition home or self-care (01) ==
PROVIDERS: Emergency Provider Physician Assistant; PCP Family Medicine
DX: S61.512A Laceration without foreign body of left wrist, initial encounter (principal); Z23 Encounter for immunization; I10 Essential (primary) hypertension; E10.9 Type 1 diabetes mellitus without complications; E78.2 Mixed hyperlipidemia; Z79.899 Other long term (current) drug therapy; Z79.4 Long term (current) use of insulin; Z79.82 Long term (current) use of aspirin; W27.8XXA Contact with other nonpowered hand tool, initial encounter
CPT/HCPCS: 12001; 90471; 90715; 99282